=== PATIENT | female | born 1985 | race Caucasian/White ===

== ENCOUNTER 2019-04-30 20:06 | Emergency (ER) | payer MEDICAID ==
[~2019-04-30] VITALS: Ht 160 cm; Wt 57.0 kg
[2019-04-30] MEDS ORDERED: IPRATROPIUM BROMIDE (0.02%) 0.5MG/2.5ML NEB HHN ONE (21:45)
[2019-04-30] MEDS ORDERED: ALBUTEROL (0.5%) 2.5MG/0.5ML NEB HHN ONE (21:45)
[2019-04-30] MEDS ORDERED: CEFTRIAXONE SODIUM 250 MG/VIAL IM ONE (21:45)
[2019-04-30] MEDS ORDERED: AZITHROMYCIN 500 MG TABLET PO ONE (21:45)
[2019-04-30] MEDS ORDERED: PREDNISONE 20MG TABLET PO ONE (21:45)
[2019-04-30 23:32] VITALS: BP 112/67
== END 2019-04-30 23:30 | disposition home or self-care (01) ==
LOC: ER 20:06
DX: N39.0 Urinary tract infection, site not specified (principal); J45.901 Unspecified asthma with (acute) exacerbation; F12.10 Cannabis abuse, uncomplicated
CPT/HCPCS: 94640; 96372; 99283; J0696; J7512; J7611

== ENCOUNTER 2019-08-04 14:13 | Emergency (ER) | payer MEDICAID, MEDICARE ==
[~2019-08-04] VITALS: Ht 157.5 cm; Wt 62.0 kg
[2019-08-04] MEDS ORDERED: MORPHINE SULFATE 10 MG/ML CPJ IM ONE (16:00)
[2019-08-04] MEDS ORDERED: KETOROLAC 30MG/ML VIAL IM ONE (16:00)
[2019-08-04 16:58] LABS: HCG SCREEN NEGATIVE
[2019-08-04] MEDS ORDERED: SODIUM CHLORIDE 0.9% 1,000 ML IV ONE (17:41)
[2019-08-04 18:06] LABS: EOSINOPHILS % 2.6 % (0.0-5.0); HEMATOCRIT. 38.5 % (36.0-48.0); HEMOGLOBIN. 12.9 g/dL (12.0-16.0); LYMPHOCYTES % 20.3 % (20.0-50.0); MEAN CORPUSCULAR HEMOGLOBIN 30.8 pg (28.0-32.0); MEAN CORPUSCULAR VOLUME 92.2 fL (81.0-99.0); MEAN PLATELET VOLUME 7.7 fl (7.4-10.4); MONOCYTES % 4.8 % (2.0-8.0); NEUTROPHILS % 71.3 % (40.0-76.0); PLATELET 278 x1000/uL (130-400); RED BLOOD CELL COUNT 4.18 mill/uL (4.2-5.4); RED CELL DISTRIBUTION WIDTH 13.5 % (11.6-14.6)
[2019-08-04 18:13] LABS: CHLORIDE 107 mEq/L (98-107)
[2019-08-04 18:15] LABS: PARTIAL THROMBOPLASTIN TIME 26.6 sec (23.4-31.0); PROTHROMBIN TIME 10.5 sec (9.6-11.0)
[2019-08-04 22:50] VITALS: BP 119/82
== END 2019-08-04 23:56 | disposition short-term general hospital (02) ==
LOC: ER 15:14
DX: S22.32XA Fracture of one rib, left side, initial encounter for closed fracture (principal); J93.9 Pneumothorax, unspecified; J45.909 Unspecified asthma, uncomplicated; W01.0XXA Fall on same level from slipping, tripping and stumbling without subsequent striking against object, initial encounter; Y93.F1 Activity, caregiving, bathing; Y92.9 Unspecified place or not applicable
CPT/HCPCS: 36415; 71045; 71250; 80053; 84703; 85025; 85610; 85730; 96372; 99285; J1885; J2270; J7030